=== PATIENT | female | born 1965 | race African-American/Black ===

== ENCOUNTER 2017-03-19 09:40 | Emergency (ER) | payer OTHER ==
[~2017-03-19] VITALS: Ht 170.2 cm; Wt 97.5 kg
[~2017-03-19 09:40] MED LIST: LEVO25TA9 PO; LOVA20TA2 PO
[2017-03-19] MEDS ORDERED: LISINOPRIL (09:53)
--- NOTE | 2017-03-19 11:03 | NUR ---
Note esa in EDM - 03/19/17 at 1104 by JORDYN Patient discharged to home in stable conditon. Written and verbal after care instructions given. Patient verbalizes understanding of instructions.pt walks in steady gait, accompaniedd by . pt tolerated vanco well. no reaction.
--- NOTE | 2017-03-19 11:04 | NUR ---
Patient discharged to home in stable conditon. Written and verbal after care instructions given. Patient verbalizes understanding of instructions.pt walks in steady gait.
== END 2017-03-19 11:05 | disposition home or self-care (01) ==
LOC: ER 09:40
DX: M25.512 Pain in left shoulder (principal); I10 Essential (primary) hypertension; E03.9 Hypothyroidism, unspecified; Z90.710 Acquired absence of both cervix and uterus
CPT/HCPCS: 72040; 73030; 99284; A4663

== ENCOUNTER 2017-06-14 12:22 | Emergency (ER) | payer OTHER ==
[~2017-06-14] VITALS: Ht 170.2 cm; Wt 99.8 kg
[~2017-06-14 12:22] MED LIST changes: +LISINOPRIL
[2017-06-14] MEDS ORDERED: HYDROCHLOROT 25 MG PO (12:28)
[2017-06-14] MEDS ORDERED: PROMETHAZINE HCL 25 MG/1 ML VIAL IM ONE ×2 (12:45→13:45)
[2017-06-14] MEDS ORDERED: HYDROMORPHONE 1 MG/1 ML DISP.SYRIN IM ONE ×2 (12:45→13:45)
[2017-06-14] MEDS ORDERED: HYDROMORPHONE 2 MG/1 ML DISP.SYRIN ONE ×2 (12:53→13:55)
[2017-06-14] MEDS ORDERED: PROMETHAZINE HCL 25 MG/1 ML VIAL ONE ×2 (12:53→13:56)
--- NOTE | 2017-06-14 13:48 | NUR ---
PT WAS EVALUATED BY DR WOODALL. PT WAS D/C TO HOME. D/C INSTRUCTIONS GIVEN TO THE PT.
[2017-06-14 13:49] VITALS: BP 132/68
== END 2017-06-14 13:50 | disposition home or self-care (01) ==
LOC: ER 12:22
DX: G43.909 Migraine, unspecified, not intractable, without status migrainosus (principal); H53.149 Visual discomfort, unspecified; I10 Essential (primary) hypertension; E03.9 Hypothyroidism, unspecified
CPT/HCPCS: 70450; 96372 ×4; 99284; A4663; J1170 ×2; J2550 ×2

== ENCOUNTER 2017-06-29 11:51 | Emergency (ER) | payer OTHER ==
[~2017-06-29] VITALS: Ht 170.2 cm; Wt 99.8 kg
[~2017-06-29 11:51] MED LIST changes: +HYDROCHLOROT 25 MG PO; -LISINOPRIL; -LOVA20TA2 PO
[2017-06-29 14:04] LABS: BASOPHILS # (AUTO) 0.1 K/uL (0.0-8.0); BASOPHILS % (AUTO) 1.1 % (0.0-2.0); EOSINOPHILS # (AUTO) 0.1 K/uL (0.0-0.7); EOSINOPHILS % (AUTO) 1.7 % (0.0-7.0); HEMATOCRIT 45.2 % (37-47); HEMOGLOBIN 14.3 G/DL (12.0-16.0); LYMPHOCYTES # (AUTO) 2.5 K/UL (0.8-4.8); LYMPHOCYTES % (AUTO) 43.2 % (20.5-51.5); MEAN CORPUSCULAR HEMOGLOBIN 26.5 UUG (27.0-31.0); MEAN CORPUSCULAR HGB CONC 32 g/dL (32.0-37.0); MEAN CORPUSCULAR VOLUME 83.9 FL (81.0-99.0); MONOCYTES # (AUTO) 0.7 K/UL (0.1-1.30); MONOCYTES % (AUTO) 11.4 % (0.0-11.0); NEUTROPHILS # (AUTO) 2.6 K/UL (1.8-8.9); NEUTROPHILS % (AUTO) 42.6 % (38.5-71.5); PLATELET COUNT (AUTO) 227 K/UL (150-450); RED BLOOD CELL COUNT(AUTO) 5.39 MIL/UL (4.2-5.4)
[2017-06-29 14:06] LABS: CREATININE 0.9 mg/dL (0.6-1.3); POTASSIUM 3.9 mmol/L (3.5-5.1)
[2017-06-29] MEDS ORDERED: METOCLOPRAMIDE HCL 10 MG/2 ML VIAL IM ONE (14:30)
[2017-06-29] MEDS ORDERED: METOCLOPRAMIDE HCL 10 MG/2 ML VIAL ONE (14:45)
--- NOTE | 2017-06-29 15:11 | NUR ---
ALL ORDERS COMPLETED, PT RESTING WITH DAUGHTER AT THE BEDSIDE.
--- NOTE | 2017-06-29 16:21 | NUR ---
MSE COMPLETED, PT D/C'D HOME, ACI RX X1 GIVEN. PT GOT DRESSED AND AMBULATED W/O DIFF/TOOK ALL BELONGINGS.
[2017-06-29 16:23] VITALS: BP 119/95
== END 2017-06-29 16:24 | disposition home or self-care (01) ==
LOC: ER 11:51
DX: G43.909 Migraine, unspecified, not intractable, without status migrainosus (principal); I10 Essential (primary) hypertension; E03.9 Hypothyroidism, unspecified
CPT/HCPCS: 36415; 85025; A4663; J2765

== ENCOUNTER 2017-08-19 10:37 | Emergency (ER) | payer OTHER ==
[~2017-08-19] VITALS: Ht 170.2 cm; Wt 90.7 kg
--- NOTE | 2017-08-19 10:43 | NUR ---
PT IS IN ROOM #2A. DR YBARRA EVALUATED THE PT.
--- NOTE | 2017-08-19 11:00 | NUR ---
PT REFUSED TO GIVE URIN SAMPLE. DR YBARRA NOTIFIED.
[2017-08-19 11:11] LABS: BASOPHILS % (AUTO) 0.6 % (0.0-2.0); EOSINOPHILS # (AUTO) 0.1 K/uL (0.0-0.7); EOSINOPHILS % (AUTO) 1.8 % (0.0-7.0); HEMATOCRIT 37.8 % (31.2-41.9); HEMOGLOBIN 12.4 g/dL (10.9-14.3); LYMPHOCYTES # (AUTO) 3.1 K/uL (20.0-40.0); LYMPHOCYTES % (AUTO) 48.3 % (20.5-51.5); MEAN CORPUSCULAR HGB CONC 33 g/dL (32.3-35.6); MEAN CORPUSCULAR VOLUME 82.8 fL (75.5-95.3); MONOCYTES # (AUTO) 0.4 K/uL (2.0-10.0); MONOCYTES % (AUTO) 6.2 % (0.0-11.0); NEUTROPHILS # (AUTO) 2.7 K/uL (1.8-8.9); NEUTROPHILS % (AUTO) 43.1 % (38.5-71.5); PLATELET COUNT (AUTO) 216 K/uL (179-408); RED BLOOD CELL COUNT(AUTO) 4.57 MIL/uL (3.63-4.92); WHITE BLOOD COUNT (AUTO) 6.4 K/uL (3.8-11.8)
[2017-08-19 11:16] LABS: CREATININE 0.8 mg/dL (0.6-1.3); POTASSIUM 3.6 mmol/L (3.5-5.1)
[2017-08-19 11:22] LABS: BILIRUBIN,DIRECT 0.1 mg/dL (0.0-0.2); BILIRUBIN,TOTAL 0.4 mg/dL (0.2-1.0); TOTAL PROTEIN, SERUM 7.6 g/dL (6.4-8.2)
--- NOTE | 2017-08-19 12:20 | NUR ---
PT WAS D/C TO HOME. D/C INSTRUCTIONS GIVEN TO THE PT.
[2017-08-19 12:21] VITALS: BP 139/78
== END 2017-08-19 12:23 | disposition home or self-care (01) ==
LOC: ER 10:39
DX: Q43.8 Other specified congenital malformations of intestine (principal); K63.89 Other specified diseases of intestine; I10 Essential (primary) hypertension; E03.9 Hypothyroidism, unspecified; G43.909 Migraine, unspecified, not intractable, without status migrainosus
CPT/HCPCS: 36415; 74176; 80048; 80076; 83690; 85025; 99285; A4663

== ENCOUNTER 2017-11-24 08:45 | Emergency (ER) | payer OTHER ==
[~2017-11-24] VITALS: Ht 170.2 cm; Wt 90.7 kg
--- NOTE | 2017-11-24 09:01 | NUR ---
DR GARCIA AT BEDSIDE FOR EVAL.
[2017-11-24] MEDS ORDERED: diphenhydrAMINE 25 MG CAP PO ONE ×2 (09:15→09:31)
[2017-11-24] MEDS ORDERED: predniSONE 20 MG TABLET PO ONE (09:15)
--- NOTE | 2017-11-24 09:22 | NUR ---
Patient discharged to home in stable conditon. Written and verbal after care instructions given. Patient verbalizes understanding of instructions.pt walks in steady gait with . no sign odf distress.
[2017-11-24] MEDS ORDERED: predniSONE 20 MG TABLET ONE (09:36)
== END 2017-11-24 09:25 | disposition home or self-care (01) ==
LOC: ER 08:45
DX: R21 Rash and other nonspecific skin eruption (principal); E03.9 Hypothyroidism, unspecified; I10 Essential (primary) hypertension; G43.909 Migraine, unspecified, not intractable, without status migrainosus
CPT/HCPCS: A4663; J7512; Q0163

== ENCOUNTER 2018-01-23 16:49 | Emergency (ER) | payer OTHER ==
[~2018-01-23] VITALS: Ht 170.2 cm; Wt 106.1 kg
[2018-01-23] MEDS ORDERED: [UNRECOGNIZED DRUG - OTHER] (17:05)
[2018-01-23] MEDS ORDERED: [UNRECOGNIZED DRUG - OTHER] (17:05)
[2018-01-23] MEDS ORDERED: BACITRACIN (17:05)
[2018-01-23] MEDS ORDERED: TOPIRAMATE 50 MG (17:05)
--- NOTE | 2018-01-23 17:21 | NUR ---
PT WAS EVALUATED BY DR WOODALL. PT WAS D/C TO HOME . D/C INSTRUCTIONS GIVEN TO THE PT.
[2018-01-23 17:22] VITALS: BP 136/84
== END 2018-01-23 17:22 | disposition home or self-care (01) ==
LOC: ER 16:53
DX: L20.9 Atopic dermatitis, unspecified (principal); I10 Essential (primary) hypertension; E03.9 Hypothyroidism, unspecified; Z90.710 Acquired absence of both cervix and uterus; Z79.2 Long term (current) use of antibiotics; Z79.899 Other long term (current) drug therapy
CPT/HCPCS: A4663

== ENCOUNTER 2018-01-30 09:11 | Inpatient (IN) | payer OTHER ==
[~2018-01-30] VITALS: Ht 170.2 cm; Wt 110.2 kg
[~2018-01-30 09:11] MED LIST changes: +BACITRACIN; +TOPIRAMATE 50 MG; +[UNRECOGNIZED DRUG - OTHER]; +[UNRECOGNIZED DRUG - OTHER]
[2018-01-30] MEDS ORDERED: LOVA20TA2 PO (09:20)
--- NOTE | 2018-01-30 09:25 | NUR ---
Dr. Barksdale at bedside for MSE.
[2018-01-30] MEDS ORDERED: PIPERACILLIN/TAZOBACTAM/D5W 3.375 G in PREMIXED 1 EACH IV SCH (09:35)
[2018-01-30] MEDS ORDERED: HYDROCODONE/APAP 5-325MG TABLET PO ONE (09:38)
[2018-01-30] MEDS ORDERED: KETOROLAC TROMETHAMINE 60 MG INJ IM ONE (09:45)
[2018-01-30] MEDS ORDERED: IV NORMAL SALINE 1000 ML BAG IV ONE (09:45)
[2018-01-30 10:12] LABS: BASOPHILS # (AUTO) 0.1 K/uL (0.0-8.0); BASOPHILS % (AUTO) 1.1 % (0.0-2.0); EOSINOPHILS # (AUTO) 0.2 K/uL (0.0-0.7); EOSINOPHILS % (AUTO) 4.4 % (0.0-7.0); HEMATOCRIT 37.8 % (31.2-41.9); HEMOGLOBIN 12.7 g/dL (10.9-14.3); LYMPHOCYTES # (AUTO) 2.8 K/uL (20.0-40.0); LYMPHOCYTES % (AUTO) 51.7 % (20.5-51.5); MEAN CORPUSCULAR HEMOGLOBIN 27.9 uug (24.7-32.8); MEAN CORPUSCULAR HGB CONC 34 g/dL (32.3-35.6); MEAN CORPUSCULAR VOLUME 82.7 fL (75.5-95.3); MONOCYTES # (AUTO) 0.3 K/uL (2.0-10.0); MONOCYTES % (AUTO) 6.5 % (0.0-11.0); NEUTROPHILS # (AUTO) 1.9 K/uL (1.8-8.9); NEUTROPHILS % (AUTO) 36.3 % (38.5-71.5); PLATELET COUNT (AUTO) 204 K/uL (179-408); RED BLOOD CELL COUNT(AUTO) 4.57 MIL/uL (3.63-4.92); WHITE BLOOD COUNT (AUTO) 5.3 K/uL (3.8-11.8)
[2018-01-30 10:17] LABS: CREATININE 0.9 mg/dL (0.6-1.3); POTASSIUM 3.7 mmol/L (3.5-5.1)
[2018-01-30] MEDS ORDERED: HYDROCODONE/APAP 5-325MG TABLET ONE (10:18)
[2018-01-30] MEDS ORDERED: PIPERACILLIN/TAZOBACTAM/D5W 50 ML IV ONE (10:18)
[2018-01-30] MEDS ORDERED: KETOROLAC TROMETHAMINE 30 MG INJ ONE (10:19)
[2018-01-30 10:23] LABS: BILIRUBIN,TOTAL 0.3 mg/dL (0.2-1.0); TOTAL PROTEIN, SERUM 7.7 g/dL (6.4-8.2)
[2018-01-30] MEDS ORDERED: KETOROLAC TROMETHAMINE 30 MG INJ IVP ONE (10:45)
--- NOTE | 2018-01-30 11:02 | NUR ---
PATIENT IS A DIFFICULT IV START. MULTIPLE ATTEMPTS BY MULTIPLE PEOPLE TO START IV ON LEFT ARM WERE UNSUCCESSFUL. WE ASKED DR MARC IF ITS OK TO PLACE IV ON RIGHT ARM AND HE SAID YES. PATIENT ALSO AGREED.
--- NOTE | 2018-01-30 11:13 | NUR ---
REPORT GIVEN TO PRICE. PATIENT AWARE OF PENDING ADMISSION.
[2018-01-30 11:15] LABS: *BILIRUBIN,URIN NEGATIVE (NEGATIVE); *BLOOD, URINE NEGATIVE (NEGATIVE); *CLARITY,URINE SLIGHTLY CLOUDY (CLEAR); *COLOR,URINE YELLOW (YELLOW); *KETONES,URINE NEGATIVE (NEGATIVE); *PROTEIN,URINE NEGATIVE (NEGATIVE); *UROBILINOGEN,URINE 0.2 E.U./dl (NORMAL); LEUKOCYTE ESTERASE ,URINE NEGATIVE (NEGATIVE); NITRITE, URINE NEGATIVE (NEGATIVE); PH,URINE 5.5 (5.0-8.0); UGLUCOSE NEGATIVE (NEGATIVE)
[2018-01-30] MEDS ORDERED: ACETAMINOPHEN 325 MG TABLET PO PRN (11:15)
[2018-01-30] MEDS ORDERED: HYDROCODONE/APAP 5-325MG TABLET PO PRN (11:15)
[2018-01-30] MEDS ORDERED: ONDANSETRON 4 MG/2 ML VIAL IV PRN (11:15)
[2018-01-30] MEDS ORDERED: MORPHINE SULFATE 2 MG/1 ML DISP.SYRIN IV PRN (11:15)
--- NOTE | 2018-01-30 11:20 | NUR ---
Pt transferred to Med/Surg unit.
--- NOTE | 2018-01-30 11:30 | NUR ---
Received pt from ER. No immediate s/s of sever pain, no immediate SOB, distress or discomfort. Alert and oriented times4, ambulatory,skin intact. ENERGY EFFICIENCY SPECIALIST aware of pt's arrival to the med-surg floor and orders in place.
[2018-01-30 11:31] LABS: BACTERIA,URINE MODERATE /HPF (NONE SEEN); RBC,URINE 0-3 /HPF (0-3); SQUAMOUS EPITHELIAL CELL,UR MANY /HPF (NONE SEEN)
[2018-01-30 11:36] VITALS: BP 141/84
--- NOTE | 2018-01-30 11:38 | NUR ---
Clinical Pharmacy Note: Vancomycin Pharmacy to Dose Subjective: To start vancomycin in this 52 y/o female for indication of cellulitis. Also started on zosyn Objective: weight 60 kg height 170 cm BUN 9 Scr 0.9 wbc 5.3 temp 97.6 Assessment/Plan Will start regimen of 1gm q16h for estimated trough of 15.5, first dose today at 1230. Will order trough before 4th scheduled dose (not ordered yet). Will monitor renal function and change to dose per level if were to become unstable. Will follow
[2018-01-30] MEDS: IV NS 1000 ML 1,000 ML IV PRN (11:59)
[2018-01-30] MEDS: VANCOMYCIN IV 1 G in PREMIXED 0 EACH IV SCH (13:05)
[2018-01-30 16:01] VITALS: BP 146/81
--- NOTE | 2018-01-30 16:20 | NUR ---
Noted previous IV line leaking. IV was removed from right AC and a new IV line started on the left forearm, 22g. Pt tolerated procedure well, noted blood return. no s/s of infiltration
[2018-01-30] MEDS ORDERED: PIPERACILLIN/TAZOBACTAM/D5W 50 ML IV SCH (16:30)
--- NOTE | 2018-01-30 19:07 | NUR ---
End of shift notes: Pt has been compliant with nursing care and medications. ATB started Vanco and Zosyn for right elbow cellulitis. No immediate s/s of SOB, pain, distress or discomfort. is bed bedside, pt is laying in bed watching television. Bed at lowest position for safety and call light within reach for assistance. One dose morphine given for pain in the early afternoon.
--- NOTE | 2018-01-30 20:00 | NUR ---
RECEIVED PATIENT AWAKE IN BED, WATCHING TV. PATIENT IS A/O X4. DENIES ANY PAIN OR DISCOMFORT AT THIS TIME. IVF INFUSING WELL TO LEFT FA #22 GAUGE. VSS. NO RESP. DISTRESS NOTED. CALL LIGHT IN REACH. ALL NEEDS ATTENDED, WILL CONTINUE TO MONITOR AND ASSESS.
[2018-01-30 20:20] VITALS: BP 142/81
[2018-01-30] MEDS ORDERED: ATORVASTATIN 10 MG TABLET PO SCH (21:00)
--- NOTE | 2018-01-30 21:05 | NUR ---
PATIENT AWAKE IN BED, C/O FEELING NAUSEOUS. GIVEN ZOFRAN 4MG IV PER RN. WILL CONTINUE TO MONITOR AND ASSESS.
[2018-01-30] MEDS: CEFTRIAXONE 1 G in IV DEXTROSE 5% 50 ML IV SCH (21:21)
--- NOTE | 2018-01-30 22:01 | NUR ---
PATIENT AWAKE IN BED, VERBALIZED THAT NAUSEA HAS BEEN RELIEVED. WILL CONTINUE TO MONITOR AND ASSESS.
[2018-01-31] MEDS: VANCOMYCIN IV 1 G in PREMIXED 0 EACH IV SCH ×2 (04:40→20:09)
[2018-01-31 05:07] VITALS: BP 140/81
[2018-01-31] MEDS: LEVOTHYROXINE SODIUM 25 MCG TABLET PO SCH (06:17)
[2018-01-31] MEDS: PANTOPRAZOLE SODIUM 40 MG TABLET.DR PO SCH (06:17)
[2018-01-31] MEDS: IV NS 1000 ML 1,000 ML IV PRN (06:17)
--- NOTE | 2018-01-31 06:33 | NUR ---
PATIENT AWAKE IN BED, DENIES ANY PAIN OR DISCOMFORT. NO RESP. DISTRESS NOTED. IVF INFUSING WELL TO LEFT FA. CALL LIGHT IN REACH. ALL NEEDS ATTENDED. WILL CONTINUE TO MONITOR AND ASSESS.
--- NOTE | 2018-01-31 07:00 | NUR ---
Pt is awake, alert and oriented times 4. Pt is laying in a supine position with the HOB at a high semi ledesma. No immediate SOB, pain, distress or discomfort. Noted swelling of the right elbow diminished. Pt states she feels minimal pain but tolerable, pt refused pain medications as of right now.
[2018-01-31 07:46] LABS: BASOPHILS % (AUTO) 0.7 % (0.0-2.0); EOSINOPHILS # (AUTO) 0.2 K/uL (0.0-0.7); EOSINOPHILS % (AUTO) 4.2 % (0.0-7.0); HEMATOCRIT 36.3 % (31.2-41.9); LYMPHOCYTES # (AUTO) 2.3 K/uL (20.0-40.0); LYMPHOCYTES % (AUTO) 45.6 % (20.5-51.5); MEAN CORPUSCULAR HEMOGLOBIN 27.6 uug (24.7-32.8); MEAN CORPUSCULAR HGB CONC 33 g/dL (32.3-35.6); MEAN CORPUSCULAR VOLUME 83.1 fL (75.5-95.3); MONOCYTES # (AUTO) 0.4 K/uL (2.0-10.0); MONOCYTES % (AUTO) 7.6 % (0.0-11.0); NEUTROPHILS # (AUTO) 2.1 K/uL (1.8-8.9); NEUTROPHILS % (AUTO) 41.9 % (38.5-71.5); PLATELET COUNT (AUTO) 202 K/uL (179-408); RED BLOOD CELL COUNT(AUTO) 4.37 MIL/uL (3.63-4.92); WHITE BLOOD COUNT (AUTO) 5.1 K/uL (3.8-11.8)
[2018-01-31] MEDS: HYDROCHLOROTHIAZIDE 25 MG TABLET PO SCH (08:02)
[2018-01-31 08:06] LABS: BILIRUBIN,TOTAL 0.2 mg/dL (0.2-1.0); CREATININE 0.9 mg/dL (0.6-1.3); MAGNESIUM 1.9 mg/dL (1.8-2.4); PHOSPHOROUS 2.9 mg/dL (2.5-4.9); POTASSIUM 3.9 mmol/L (3.5-5.1); TOTAL PROTEIN, SERUM 7.1 g/dL (6.4-8.2)
[2018-01-31 08:08] LABS: THYROID STIMULATING HORMONE 2.59 mIU/mL (0.358-3.740)
[2018-01-31] MEDS ORDERED: Medication Not On Formulary EA (Lovastatin 1 TAB) PO SCH (09:00)
[2018-01-31] MEDS ORDERED: HYDROCHLOROT 25 MG PO SCH (09:00)
[2018-01-31] MEDS: OMEGA-3 FATTY ACIDS/FISH OIL CAPSULE PO SCH ×2 (10:49→22:33)
[2018-01-31 11:11] VITALS: BP 129/75
[2018-01-31] MEDS ORDERED: MAGNESIUM HYDROXIDE 30 ML LIQUID UDC PO PRN (11:45)
[2018-01-31] MEDS: DOCUSATE SODIUM 100 MG CAPSULE PO SCH ×2 (12:47→21:00)
--- NOTE | 2018-01-31 12:49 | NUR ---
Pt had stated previously to the WHEAT GROWER and myself in the room that she has not had a BM since . Warm prune juice given and Colace as ordered BID and MOM PRN as ordered by WHEAT GROWER. Pt compliant with Colace and prune juice. Pt was advice to walk around the unit
[2018-01-31 13:46] LABS: *BILIRUBIN,URIN NEGATIVE (NEGATIVE); *BLOOD, URINE NEGATIVE (NEGATIVE); *CLARITY,URINE CLEAR (CLEAR); *COLOR,URINE YELLOW (YELLOW); *KETONES,URINE NEGATIVE (NEGATIVE); *PROTEIN,URINE NEGATIVE (NEGATIVE); *UROBILINOGEN,URINE 0.2 E.U./dl (NORMAL); LEUKOCYTE ESTERASE ,URINE NEGATIVE (NEGATIVE); NITRITE, URINE NEGATIVE (NEGATIVE); PH,URINE 5.5 (5.0-8.0); UGLUCOSE NEGATIVE (NEGATIVE)
[2018-01-31 14:34] LABS: BACTERIA,URINE NONE SEEN /HPF (NONE SEEN); RBC,URINE 0-3 /HPF (0-3); SQUAMOUS EPITHELIAL CELL,UR FEW /HPF (NONE SEEN); WBC,URINE 0-3 /HPF (0-3)
--- NOTE | 2018-01-31 14:47 | NUR ---
Clinical Pharmacy Note: Vancomycin Pharmacy to Dose Subjective: To continue vancomycin in this 52 y/o female for indication of cellulitis. Also on Rocephin Objective: weight 60 kg height 170 cm BUN 10 Scr 0.9 wbc 5.1 temp 98.6 Assessment/Plan Will continue regimen of 1gm q16h for estimated trough of 15.5, third dose due today at 2030. Will order trough before 4th scheduled dose (ordered for tomorrow at 1200). Will monitor renal function and change to dose per level if were to become unstable. Will follow
--- NOTE | 2018-01-31 15:10 | NUR ---
Pt states she feels itchy all over. Informed DRIVE IN WAITER/WAITRESS and Donald ordered IV. Gave pt some lotion as temporary relief
[2018-01-31 15:21] VITALS: BP 113/77
[2018-01-31] MEDS: diphenhydrAMINE 50 MG/1 ML VIAL IV PRN (15:58)
[2018-01-31] MEDS ORDERED: MORPHINE SULFATE 4 MG/1 ML DISP.SYRIN IV PRN (16:45)
--- NOTE | 2018-01-31 18:40 | NUR ---
End of shift notes: pt has been compliant with nursing care and medications throughout the day. Pleasant individual, no apparent s/s of pain, distress, discomfort or SOB at this time. Pt is noted to be napping but easily arousable to name. Pt requested a cake and a sandwich as an evening snack and both were provided for her. Noted pt is able to move her right upper extremity and her elbow is notably less swollen than yesterday. Pt also stated she feels much better. Colace and Benadryl were new orders
[2018-01-31 20:00] VITALS: BP 115/57
--- NOTE | 2018-01-31 20:00 | NUR ---
RECEIVED PATIENT AWAKE IN BED. A/O X4. DENIES ANY PAIN OR DISCOMFORT. NO RESP. DISTRESS NOTED. VS WNL. IV HEPLOCK NOTED TO LEFT FA #22 GAUGE. ALL NEEDS ATTENDED, WILL CONTINUE TO MONITOR AND ASSESS.
[2018-01-31] MEDS: LACTOBACILLUS RHAMNOSUS GG 1 EACH CAPSULE PO SCH (20:19)
--- NOTE | 2018-01-31 20:45 | NUR ---
PATIENT AWAKE IN BED. IV HEPLOCK NOTED TO LEFT FA, REDNESS NOTED AND PATIENT C/O "BURNING FEELING." REMOVED AND RESTARTED TO RIGHT FA #22 GAUGE. ALL NEEDS ATTENDED. WILL CONTINUE TO MONITOR AND ASSESS.
[2018-01-31] MEDS ORDERED: ATORVASTATIN 20 MG TABLET PO SCH (21:00)
[2018-01-31] MEDS: CEFTRIAXONE 1 G in IV DEXTROSE 5% 50 ML IV SCH (22:28)
[2018-02-01] MEDS: diphenhydrAMINE 50 MG/1 ML VIAL IV PRN (01:48)
[2018-02-01 05:11] VITALS: BP 115/66
[2018-02-01] MEDS: PANTOPRAZOLE SODIUM 40 MG TABLET.DR PO SCH (06:22)
[2018-02-01] MEDS: LEVOTHYROXINE SODIUM 25 MCG TABLET PO SCH (06:22)
--- NOTE | 2018-02-01 06:41 | NUR ---
PATIENT AWAKE IN BED, DENIES ANY PAIN OR DISCOMFORT. NO RESP. DISTRESS NOTED. SLEPT WELL. CALL LIGHT IN REACH. ALL NEEDS ATTENDED. WILL CONTINUE TO MONITOR.
[2018-02-01 07:05] LABS: BASOPHILS # (AUTO) 0.1 K/uL (0.0-8.0); EOSINOPHILS # (AUTO) 0.2 K/uL (0.0-0.7); EOSINOPHILS % (AUTO) 4.3 % (0.0-7.0); HEMATOCRIT 38.3 % (31.2-41.9); HEMOGLOBIN 12.5 g/dL (10.9-14.3); LYMPHOCYTES # (AUTO) 2.5 K/uL (20.0-40.0); LYMPHOCYTES % (AUTO) 43.7 % (20.5-51.5); MEAN CORPUSCULAR HEMOGLOBIN 27.1 uug (24.7-32.8); MEAN CORPUSCULAR HGB CONC 33 g/dL (32.3-35.6); MEAN CORPUSCULAR VOLUME 83.5 fL (75.5-95.3); MONOCYTES # (AUTO) 0.4 K/uL (2.0-10.0); MONOCYTES % (AUTO) 7.6 % (0.0-11.0); NEUTROPHILS # (AUTO) 2.5 K/uL (1.8-8.9); NEUTROPHILS % (AUTO) 43.4 % (38.5-71.5); PLATELET COUNT (AUTO) 191 K/uL (179-408); RED BLOOD CELL COUNT(AUTO) 4.59 MIL/uL (3.63-4.92); WHITE BLOOD COUNT (AUTO) 5.6 K/uL (3.8-11.8)
[2018-02-01 07:07] LABS: BILIRUBIN,TOTAL 0.2 mg/dL (0.2-1.0); CREATININE 0.9 mg/dL (0.6-1.3); MAGNESIUM 1.9 mg/dL (1.8-2.4); PHOSPHOROUS 4.4 mg/dL (2.5-4.9); POTASSIUM 3.7 mmol/L (3.5-5.1); TOTAL PROTEIN, SERUM 7.6 g/dL (6.4-8.2)
--- NOTE | 2018-02-01 08:00 | NUR ---
Pt is in no acute distress. Pt alert and oriented x 4. Right upper arm swelling of cellulitis was marked, tender to touch and not warm. Pt states that the swelling on the right elbow area has subsided since pt got abx. Call light is within reach. Pt ambulatory and able to walk.
[2018-02-01] MEDS: DOCUSATE SODIUM 100 MG CAPSULE PO SCH (09:30)
[2018-02-01] MEDS: LACTOBACILLUS RHAMNOSUS GG 1 EACH CAPSULE PO SCH (09:30)
[2018-02-01] MEDS: OMEGA-3 FATTY ACIDS/FISH OIL CAPSULE PO SCH (09:30)
[2018-02-01] MEDS: HYDROCHLOROTHIAZIDE 25 MG TABLET PO SCH (09:35)
[2018-02-01 11:08] VITALS: BP 121/70
[2018-02-01] MEDS ORDERED: SULFAMETH/TRIMETH 800/160 MG TABLET PO SCH (12:45)
[2018-02-01] MEDS ORDERED: ATOR20TA PO (12:46)
[2018-02-01] MEDS ORDERED: OMEG1CAP PO (12:46)
[2018-02-01] MEDS ORDERED: SULF1TAB3 PO (12:46)
[2018-02-01] MEDS ORDERED: ACET325T53 PO (12:46)
[2018-02-01] MEDS ORDERED: LACT1CAP57 PO (12:46)
--- NOTE | 2018-02-01 14:30 | NUR ---
Discharge instructions given to patient. Prescription given to patient. Pt verbalized understanding. Instructed pt to f/u with PMD within 1 week. IV d/c. Pt's right upper arm cellulitis has decreased compared when pt was admitted. Pt refused to have pix taken. Pt wanted to go home YURI.
== END 2018-02-01 14:25 | disposition home or self-care (01) | DRG 383 ==
LOC: ER 09:13 → MED 11:00
PROVIDERS: ADMIT Internal Medicine; ATTEND Internal Medicine
DX: L03.113 Cellulitis of right upper limb (principal); I27.20 Pulmonary hypertension, unspecified; I11.9 Hypertensive heart disease without heart failure; K76.0 Fatty (change of) liver, not elsewhere classified; E03.9 Hypothyroidism, unspecified; E78.5 Hyperlipidemia, unspecified; E66.8 Other obesity; M17.0 Bilateral primary osteoarthritis of knee; S50.361A Insect bite (nonvenomous) of right elbow, initial encounter; W57.XXXA Bitten or stung by nonvenomous insect and other nonvenomous arthropods, initial encounter; Y92.89 Other specified places as the place of occurrence of the external cause; Z68.38 Body mass index [BMI] 38.0-38.9, adult; Q63.2 Ectopic kidney; Z83.3 Family history of diabetes mellitus; Z82.49 Family history of ischemic heart disease and other diseases of the circulatory system; Z90.710 Acquired absence of both cervix and uterus; Z79.899 Other long term (current) drug therapy; K22.4 Dyskinesia of esophagus; R00.1 Bradycardia, unspecified; E88.09 Other disorders of plasma-protein metabolism, not elsewhere classified
CPT/HCPCS: 36415; 71045; 73020; 73060; 73070; 73200; 83605; 83735; 84100; 84443; 85025; 85610; 87040; 87086; A4663; J0696; J1200; J1885; J2270; J2405; J2543; J3370; J7030; J7060

== ENCOUNTER 2018-04-28 13:15 | Emergency (ER) | payer OTHER ==
[~2018-04-28] VITALS: Ht 170.2 cm; Wt 77.1 kg
[~2018-04-28 13:15] MED LIST changes: +ACET325T53 PO; +ATOR20TA PO; -BACITRACIN; +LACT1CAP57 PO; +OMEG1CAP PO; +SULF1TAB3 PO; -TOPIRAMATE 50 MG; -[UNRECOGNIZED DRUG - OTHER]; -[UNRECOGNIZED DRUG - OTHER]
--- NOTE | 2018-04-28 13:28 | NUR ---
Dr Chand at the bedside for MSE.
[2018-04-28 14:03] LABS: *BILIRUBIN,URIN NEGATIVE (NEGATIVE); *BLOOD, URINE NEGATIVE (NEGATIVE); *COLOR,URINE YELLOW (YELLOW); *KETONES,URINE NEGATIVE (NEGATIVE); *PROTEIN,URINE NEGATIVE (NEGATIVE); *UROBILINOGEN,URINE 0.2 E.U./dl (NORMAL); LEUKOCYTE ESTERASE ,URINE NEGATIVE (NEGATIVE); NITRITE, URINE NEGATIVE (NEGATIVE); PH,URINE 5.5 (5.0-8.0); UGLUCOSE NEGATIVE (NEGATIVE)
[2018-04-28 14:05] LABS: BASOPHILS # (AUTO) 0.1 K/uL (0.0-8.0); BASOPHILS % (AUTO) 2.1 % (0.0-2.0); EOSINOPHILS # (AUTO) 0.2 K/uL (0.0-0.7); EOSINOPHILS % (AUTO) 2.2 % (0.0-7.0); HEMATOCRIT 41.9 % (31.2-41.9); HEMOGLOBIN 13.8 g/dL (10.9-14.3); LYMPHOCYTES # (AUTO) 3.4 K/uL (20.0-40.0); LYMPHOCYTES % (AUTO) 46.6 % (20.5-51.5); MEAN CORPUSCULAR HGB CONC 33 g/dL (32.3-35.6); MEAN CORPUSCULAR VOLUME 82.3 fL (75.5-95.3); MONOCYTES # (AUTO) 0.6 K/uL (2.0-10.0); NEUTROPHILS % (AUTO) 41.1 % (38.5-71.5); PLATELET COUNT (AUTO) 251 K/uL (179-408); WHITE BLOOD COUNT (AUTO) 7.2 K/uL (3.8-11.8)
[2018-04-28 14:09] LABS: *CLARITY,URINE HAZY (CLEAR)
[2018-04-28 14:12] LABS: BACTERIA,URINE FEW /HPF (NONE SEEN); CREATININE 0.9 mg/dL (0.6-1.3); POTASSIUM 3.2 mmol/L (3.5-5.1); RBC,URINE 0-3 /HPF (0-3); SQUAMOUS EPITHELIAL CELL,UR MODERATE /HPF (NONE SEEN); WBC,URINE 0-3 /HPF (0-3)
[2018-04-28 14:13] LABS: MUCUS,URINE MODERATE /LPF (0-FEW)
[2018-04-28 14:18] LABS: BILIRUBIN,DIRECT 0.1 mg/dL (0.0-0.2); BILIRUBIN,TOTAL 0.3 mg/dL (0.2-1.0); TOTAL PROTEIN, SERUM 8.5 g/dL (6.4-8.2)
[2018-04-28 14:51] VITALS: BP 119/98
--- NOTE | 2018-04-28 14:53 | NUR ---
Patient discharged to home in stable conditon. Written and verbal after care instructions given. Patient verbalizes understanding of instructions.
== END 2018-04-28 14:53 | disposition home or self-care (01) ==
LOC: ER 13:17
DX: R10.13 Epigastric pain (principal); I10 Essential (primary) hypertension; E03.9 Hypothyroidism, unspecified; Z90.710 Acquired absence of both cervix and uterus; Z79.899 Other long term (current) drug therapy; Z79.2 Long term (current) use of antibiotics
CPT/HCPCS: 36415; 83690; 85025; A4663

== ENCOUNTER 2018-05-03 15:18 | Inpatient (IN) | payer OTHER ==
[~2018-05-03] VITALS: Ht 170.2 cm; Wt 112.1 kg
--- NOTE | 2018-05-03 15:43 | NUR ---
PATIENT TAKEN TO ROOM 2A. PATIENT STATES SHE HAS BEEN HAVING ABDOMINAL PAIN WITH NAUSEA AND X1 EPISODE OF VOMITING TODAY.
--- NOTE | 2018-05-03 15:44 | NUR ---
DOCTOR FERNANDO IN ROOM TO SEE PATIENT.
[2018-05-03] MEDS ORDERED: MORPHINE SULFATE 2 MG/1 ML DISP.SYRIN IV ONE (16:00)
[2018-05-03] MEDS ORDERED: IV NORMAL SALINE 1000 ML BAG IV ONE ×3 (16:00→17:15)
[2018-05-03] MEDS ORDERED: LIDOCAINE VISCUS 2% 15 ML UDC MM ONE (16:00)
[2018-05-03] MEDS ORDERED: MAG HYDROX/AL HYDROX/SIMETH 30 ML LIQUID UDC PO ONE (16:00)
[2018-05-03] MEDS ORDERED: ONDANSETRON 4 MG/2 ML VIAL IV ONE ×2 (16:00→17:15)
[2018-05-03] MEDS ORDERED: PANTOPRAZOLE SODIUM 40 MG VIAL IV ONE (16:00)
[2018-05-03] MEDS ORDERED: ONDANSETRON 4 MG/2 ML VIAL ONE ×3 (16:04→19:21)
[2018-05-03] MEDS ORDERED: MAG HYDROX/AL HYDROX/SIMETH 30 ML LIQUID UDC ONE (16:04)
[2018-05-03] MEDS ORDERED: LIDOCAINE VISCUS 2% 15 ML UDC ONE (16:04)
[2018-05-03] MEDS ORDERED: MORPHINE SULFATE 4 MG/1 ML DISP.SYRIN ONE ×3 (16:04→19:21)
[2018-05-03] MEDS ORDERED: PANTOPRAZOLE SODIUM 40 MG VIAL ONE (16:05)
[2018-05-03 16:17] LABS: BASOPHILS # (AUTO) 0.1 K/uL (0.0-8.0); BASOPHILS % (AUTO) 0.3 % (0.0-2.0); EOSINOPHILS # (AUTO) 0.4 K/uL (0.0-0.7); EOSINOPHILS % (AUTO) 2.3 % (0.0-7.0); HEMATOCRIT 41.2 % (31.2-41.9); HEMOGLOBIN 13.5 g/dL (10.9-14.3); LYMPHOCYTES # (AUTO) 0.7 K/uL (20.0-40.0); LYMPHOCYTES % (AUTO) 4.3 % (20.5-51.5); MEAN CORPUSCULAR HEMOGLOBIN 26.6 uug (24.7-32.8); MEAN CORPUSCULAR HGB CONC 33 g/dL (32.3-35.6); MEAN CORPUSCULAR VOLUME 81.1 fL (75.5-95.3); MONOCYTES # (AUTO) 0.5 K/uL (2.0-10.0); MONOCYTES % (AUTO) 3.4 % (0.0-11.0); NEUTROPHILS % (AUTO) 89.7 % (38.5-71.5); PLATELET COUNT (AUTO) 156 K/uL (179-408); RED BLOOD CELL COUNT(AUTO) 5.08 MIL/uL (3.63-4.92); WHITE BLOOD COUNT (AUTO) 15.6 K/uL (3.8-11.8)
--- NOTE | 2018-05-03 16:33 | NUR ---
PATIENT X1 EMESIS GREEN MINIMUM AMOUNT.
[2018-05-03 16:35] LABS: CREATININE 1.2 mg/dL (0.6-1.3); POTASSIUM 3.3 mmol/L (3.5-5.1)
--- NOTE | 2018-05-03 16:36 | NUR ---
PATIENT RESTING AND FEELING BETTER AFTER PAIN AND NAUSEA MEDICATION GIVEN.
[2018-05-03 16:47] LABS: BILIRUBIN,DIRECT 1.6 mg/dL (0.0-0.2); BILIRUBIN,TOTAL 2.6 mg/dL (0.2-1.0); TOTAL PROTEIN, SERUM 7.9 g/dL (6.4-8.2)
[2018-05-03 16:51] LABS: THYROID STIMULATING HORMONE 2.824 mIU/mL (0.358-3.740)
[2018-05-03] MEDS ORDERED: MORPHINE SULFATE 4 MG/1 ML DISP.SYRIN IV ONE ×2 (17:15→19:15)
--- NOTE | 2018-05-03 17:45 | NUR ---
PATIENT COMPLAINS OF ABDOMINAL PAIN MID AND RIGHT UPPER QUADRANTS.
--- NOTE | 2018-05-03 18:36 | NUR ---
PATIENT TAKEN DOWN TO CT SCAN.
--- NOTE | 2018-05-03 19:01 | NUR ---
SBAR GIVEN TO SARAY
--- NOTE | 2018-05-03 19:10 | NUR ---
Pt states still has abdominal pain 6/10, still nauseous, and now feeling some itching started around 30 min ago. MD notified.
[2018-05-03] MEDS ORDERED: ONDANSETRON IV *ER 4 MG/2 ML VIAL IV ONE (19:15)
[2018-05-03] MEDS ORDERED: diphenhydrAMINE 50 MG/1 ML VIAL IV ONE (19:15)
[2018-05-03] MEDS ORDERED: diphenhydrAMINE 50 MG/1 ML VIAL ONE (19:17)
--- NOTE | 2018-05-03 19:42 | NUR ---
Pt states her pain is gone, not nauseous, and the itching has gone down, feeling better.
--- NOTE | 2018-05-03 20:02 | NUR ---
Dr. Hallman on panel call with Dr. John Richardson.
--- NOTE | 2018-05-03 20:21 | NUR ---
Passed report Erica MULLINS medsurg.
[2018-05-03 20:55] VITALS: BP 106/55
--- NOTE | 2018-05-03 21:40 | NUR ---
RECEIVED PT FROM ER VIA GURNEY. PT IS AWAKE, ALERT, AND ORIENTEDX4. PT ADMITTED TO TELEMETRY UNDER THE CARE OF DR. DEVLIN. DX: ABDOMINAL PAIN. BELONGING LIST DONE. ADMISSION PROCESS AND CARE PLAN INITIATED. RETIREMENT ASSESSMENT DONE.SAFETY AND COMFORT PROVIDED. CALL LIGHT WITHIN REACH. WILL CONTINUE TO MONITOR.
[2018-05-03] MEDS ORDERED: ACETAMINOPHEN 650 MG SUPP.RECT RC PRN (22:30)
[2018-05-03] MEDS ORDERED: HYDROMORPHONE 1 MG/1 ML DISP.SYRIN IV PRN (22:30)
[2018-05-03] MEDS ORDERED: ONDANSETRON 4 MG/2 ML VIAL IV PRN (22:30)
[2018-05-03] MEDS: diphenhydrAMINE 50 MG/1 ML VIAL IV PRN (22:57)
[2018-05-03] MEDS ORDERED: POTASSIUM CHLORIDE 10 MEQ/50 ML IV ONE (23:00)
[2018-05-03] MEDS ORDERED: POTASSIUM CHLORIDE 20 MEQ in IV D5/ 0.9% NACL 1,000 ML IV PRN (23:00)
[2018-05-03] MEDS ORDERED: PIGGYBACK IV ONE (23:00)
[2018-05-03] MEDS ORDERED: MORPHINE SULFATE 4 MG/1 ML DISP.SYRIN IV PRN (23:15)
[2018-05-04 03:09] LABS: *BLOOD, URINE NEGATIVE (NEGATIVE); *CLARITY,URINE CLEAR (CLEAR); *COLOR,URINE AMBER (YELLOW); *KETONES,URINE NEGATIVE (NEGATIVE); *PROTEIN,URINE 1+ (NEGATIVE); LEUKOCYTE ESTERASE ,URINE NEGATIVE (NEGATIVE); NITRITE, URINE NEGATIVE (NEGATIVE); PH,URINE 5.5 (5.0-8.0); UGLUCOSE NEGATIVE (NEGATIVE)
[2018-05-04 03:12] LABS: *BILIRUBIN,URIN 1+ (NEGATIVE)
[2018-05-04 03:13] LABS: BACTERIA,URINE FEW /HPF (NONE SEEN); RBC,URINE 0-3 /HPF (0-3); SQUAMOUS EPITHELIAL CELL,UR MANY /HPF (NONE SEEN)
[2018-05-04 04:00] VITALS: BP 106/45
[2018-05-04] MEDS: diphenhydrAMINE 50 MG/1 ML VIAL IV PRN (05:14)
--- NOTE | 2018-05-04 06:42 | NUR ---
PT SLEPT THROUGHOUT THE SHIFT. PT SHOWS NO SIGNS OF DISTRESS. IV INTACT AND PATENT. PRESCRIBED MEDICATION GIVEN AND PT TOLERATED IT WELL. PT STILL HAS ABDOMINAL PAIN. SAFETY AND COMFORT PROVIDED. WILL ENDORSE TO DAYSHIFT NURSE.
[2018-05-04 06:46] LABS: BASOPHILS # (AUTO) 0.1 K/uL (0.0-8.0); BASOPHILS % (AUTO) 0.6 % (0.0-2.0); EOSINOPHILS # (AUTO) 0.6 K/uL (0.0-0.7); EOSINOPHILS % (AUTO) 4.8 % (0.0-7.0); HEMATOCRIT 36.9 % (31.2-41.9); HEMOGLOBIN 12.3 g/dL (10.9-14.3); LYMPHOCYTES # (AUTO) 0.7 K/uL (20.0-40.0); LYMPHOCYTES % (AUTO) 6.2 % (20.5-51.5); MEAN CORPUSCULAR HEMOGLOBIN 27.3 uug (24.7-32.8); MEAN CORPUSCULAR HGB CONC 33 g/dL (32.3-35.6); MEAN CORPUSCULAR VOLUME 82.1 fL (75.5-95.3); MONOCYTES # (AUTO) 0.4 K/uL (2.0-10.0); MONOCYTES % (AUTO) 2.9 % (0.0-11.0); NEUTROPHILS # (AUTO) 10.4 K/uL (1.8-8.9); NEUTROPHILS % (AUTO) 85.5 % (38.5-71.5); RED BLOOD CELL COUNT(AUTO) 4.49 MIL/uL (3.63-4.92); WHITE BLOOD COUNT (AUTO) 12.1 K/uL (3.8-11.8)
[2018-05-04 07:02] LABS: BILIRUBIN,TOTAL 0.8 mg/dL (0.2-1.0); PHOSPHOROUS 1.7 mg/dL (2.5-4.9); POTASSIUM 3.2 mmol/L (3.5-5.1); TOTAL PROTEIN, SERUM 7.1 g/dL (6.4-8.2)
[2018-05-04] MEDS ORDERED: PANTOPRAZOLE SODIUM 40 MG VIAL IV SCH (07:30)
[2018-05-04 07:34] LABS: PLATELET COUNT (AUTO) 134 K/uL (179-408)
[2018-05-04 07:35] LABS: LYMPHOCYTES % (MANUAL) 7 % (20-40); NEUTROPHILS % (MANUAL) 86 % (42-75)
[2018-05-04 07:36] LABS: EOSINOPHILS % (MANUAL) 3 % (0-8); MONOCYTES % (MANUAL) 4 % (2-10)
--- NOTE | 2018-05-04 07:42 | NUR ---
patient resting comfortably in bed, no s/s of distress. npo status at this time. will continue to monitor and provide pain management.
[2018-05-04] MEDS ORDERED: POTASSIUM CHLORIDE 50 ML IV SCH (11:00)
[2018-05-04] MEDS: POTASSIUM CHLORIDE 50 ML IV SCH ×2 (11:00→11:59)
[2018-05-04] MEDS ORDERED: POTASSIUM PHOSPHATE MM 7.5 MMOL in IV DEXTROSE 5% 100 ML IV ONE (11:00)
[2018-05-04 11:40] VITALS: BP 91/56
[2018-05-04] MEDS ORDERED: NEUTRA PHOS PACKET PO ONE (12:15)
[2018-05-04] MEDS ORDERED: POTASSIUM CHLORIDE 20 MEQ TAB.PRT.SR PO ONE (12:15)
[2018-05-04] MEDS ORDERED: MAGNESIUM SULFATE/D5W 100 ML IV SCH (13:00)
[2018-05-04] MEDS ORDERED: HYDR-552 PO (13:27)
[2018-05-04 13:38] VITALS: BP 113/68
--- NOTE | 2018-05-04 14:00 | NUR ---
patient discharged at this time in stable condition, no s/s of distress. vital signs stable. electrolytes supplemented per md orders. discharge instructions provided, discharge packet completed/sign/given a copy to patient. written prescriptions given to patient. patient instructed to follow-up with primary care physician within one week of being discharged from [facility]. iv-access discontinued, id-band taken off. discharge education provided regarding diagnosis. patient's mode of transportation: . safely discharged from hospital premises.
== END 2018-05-04 14:00 | disposition home or self-care (01) | DRG 243 ==
LOC: ER 15:20 → MED 20:26
PROVIDERS: ADMIT Internal Medicine; ATTEND Internal Medicine
DX: K22.4 Dyskinesia of esophagus (principal); Q79.59 Other congenital malformations of abdominal wall; D68.9 Coagulation defect, unspecified; E44.0 Moderate protein-calorie malnutrition; E87.1 Hypo-osmolality and hyponatremia; I27.20 Pulmonary hypertension, unspecified; E83.39 Other disorders of phosphorus metabolism; K21.9 Gastro-esophageal reflux disease without esophagitis; K76.0 Fatty (change of) liver, not elsewhere classified; E83.51 Hypocalcemia; I11.9 Hypertensive heart disease without heart failure; R74.0 Nonspecific elevation of levels of transaminase and lactic acid dehydrogenase [LDH]; K44.9 Diaphragmatic hernia without obstruction or gangrene; Z68.38 Body mass index [BMI] 38.0-38.9, adult; Z87.440 Personal history of urinary (tract) infections; K57.90 Diverticulosis of intestine, part unspecified, without perforation or abscess without bleeding; Z79.899 Other long term (current) drug therapy; M17.0 Bilateral primary osteoarthritis of knee; E87.6 Hypokalemia; E03.9 Hypothyroidism, unspecified; E66.9 Obesity, unspecified; Q63.2 Ectopic kidney; R20.2 Paresthesia of skin; E78.5 Hyperlipidemia, unspecified; I70.0 Atherosclerosis of aorta; Z83.3 Family history of diabetes mellitus; Z82.49 Family history of ischemic heart disease and other diseases of the circulatory system; Z90.49 Acquired absence of other specified parts of digestive tract; Z90.710 Acquired absence of both cervix and uterus; D72.829 Elevated white blood cell count, unspecified
CPT/HCPCS: 36415; 70030-TC; 71045; 83690; 83735; 84100; 84443; 85025; 85730; 87086; 93005; A4663; C9113; J1200; J2270; J2405; J3480; J3490; J7030; J7042; J7060

== ENCOUNTER 2018-05-05 15:32 | Emergency (ER) | payer OTHER ==
[~2018-05-05] VITALS: Ht 170.2 cm; Wt 99.8 kg
[~2018-05-05 15:32] MED LIST changes: +HYDR-552 PO
--- NOTE | 2018-05-05 18:35 | NUR ---
PATIENT STQATES SHE IS HER FOR "SAME THING, ABDOMINAL PAIN"
--- NOTE | 2018-05-05 19:01 | NUR ---
HANDOFF REPORT GIVEN TO MARI MULLINS
[2018-05-05] MEDS ORDERED: METOCLOPRAMIDE HCL 10 MG/2 ML VIAL IV ONE (19:15)
[2018-05-05] MEDS ORDERED: KETOROLAC TROMETHAMINE 15 MG INJ IV ONE (19:15)
[2018-05-05 19:18] LABS: BASOPHILS # (AUTO) 0.1 K/uL (0.0-8.0); BASOPHILS % (AUTO) 1.1 % (0.0-2.0); EOSINOPHILS # (AUTO) 0.6 K/uL (0.0-0.7); EOSINOPHILS % (AUTO) 4.7 % (0.0-7.0); HEMATOCRIT 36.8 % (31.2-41.9); HEMOGLOBIN 11.9 g/dL (10.9-14.3); LYMPHOCYTES # (AUTO) 2.1 K/uL (20.0-40.0); LYMPHOCYTES % (AUTO) 16.9 % (20.5-51.5); MEAN CORPUSCULAR HEMOGLOBIN 26.5 uug (24.7-32.8); MEAN CORPUSCULAR HGB CONC 32 g/dL (32.3-35.6); MEAN CORPUSCULAR VOLUME 81.7 fL (75.5-95.3); MONOCYTES # (AUTO) 0.7 K/uL (2.0-10.0); MONOCYTES % (AUTO) 5.5 % (0.0-11.0); NEUTROPHILS # (AUTO) 8.8 K/uL (1.8-8.9); NEUTROPHILS % (AUTO) 71.8 % (38.5-71.5); PLATELET COUNT (AUTO) 160 K/uL (179-408); WHITE BLOOD COUNT (AUTO) 12.2 K/uL (3.8-11.8)
[2018-05-05] MEDS ORDERED: METOCLOPRAMIDE HCL 10 MG/2 ML VIAL ONE (19:18)
[2018-05-05] MEDS ORDERED: KETOROLAC TROMETHAMINE 30 MG INJ ONE (19:18)
[2018-05-05 19:19] LABS: *BLOOD, URINE NEGATIVE (NEGATIVE); *CLARITY,URINE SLIGHTLY CLOUDY (CLEAR); *COLOR,URINE YELLOW (YELLOW); *KETONES,URINE NEGATIVE (NEGATIVE); *PROTEIN,URINE TRACE (NEGATIVE); *UROBILINOGEN,URINE 0.2 E.U./dl (NORMAL); LEUKOCYTE ESTERASE ,URINE NEGATIVE (NEGATIVE); NITRITE, URINE NEGATIVE (NEGATIVE); UGLUCOSE NEGATIVE (NEGATIVE)
[2018-05-05] MEDS ORDERED: KETOROLAC TROMETHAMINE 15 MG INJ ONE (19:19)
[2018-05-05 19:31] LABS: *BILIRUBIN,URIN 1+ (NEGATIVE)
[2018-05-05 19:36] LABS: BACTERIA,URINE RARE /HPF (NONE SEEN); RBC,URINE 0-3 /HPF (0-3); SQUAMOUS EPITHELIAL CELL,UR FEW /HPF (NONE SEEN)
[2018-05-05 19:39] LABS: CREATININE 0.9 mg/dL (0.6-1.3); POTASSIUM 3.4 mmol/L (3.5-5.1)
[2018-05-05 19:45] LABS: BILIRUBIN,DIRECT 0.2 mg/dL (0.0-0.2); BILIRUBIN,TOTAL 0.6 mg/dL (0.2-1.0); TOTAL PROTEIN, SERUM 7.4 g/dL (6.4-8.2)
--- NOTE | 2018-05-05 21:06 | NUR ---
IV removed. Catheter intact and site benign. Pressure and 4x4 gauze applied to site. No bleeding noted.
--- NOTE | 2018-05-05 21:09 | NUR ---
Patient discharged to home in stable conditon. Written and verbal after care instructions given. Patient verbalizes understanding of instructions. Pt ambulated out of ER in steady gait with . All belongings with pt. VSS. NAD noted.
[2018-05-05 21:10] VITALS: BP 111/74
== END 2018-05-05 21:11 | disposition home or self-care (01) ==
LOC: ER 15:34
DX: R10.13 Epigastric pain (principal); I10 Essential (primary) hypertension; E78.5 Hyperlipidemia, unspecified; E03.9 Hypothyroidism, unspecified; Z90.710 Acquired absence of both cervix and uterus; Z79.891 Long term (current) use of opiate analgesic; Z79.899 Other long term (current) drug therapy
CPT/HCPCS: 36415; 71045; 74021; 80048; 80076; 81001; 83690; 84484; 84703; 85025; 85730; 93005; 96374; 96375; 99285; A4663; J1885; J2765; 70030-TC

== ENCOUNTER 2018-05-31 10:47 | Emergency (ER) | payer OTHER ==
[~2018-05-31] VITALS: Ht 170.2 cm; Wt 99.8 kg
[~2018-05-31 10:47] MED LIST changes: -ATOR20TA PO; -HYDROCHLOROT 25 MG PO; -LACT1CAP57 PO; -SULF1TAB3 PO
--- NOTE | 2018-05-31 11:14 | NUR ---
Patients remains in the room,awaiting to be seen by .Ice pack applied to left knee.
[2018-05-31] MEDS ORDERED: IBUPROFEN 800 MG TABLET PO ONE (11:30)
[2018-05-31] MEDS ORDERED: IBUPROFEN 800 MG TABLET ONE (11:37)
[2018-05-31 11:50] VITALS: BP 140/84
== END 2018-05-31 11:50 | disposition home or self-care (01) ==
LOC: ER 10:49
DX: M25.562 Pain in left knee (principal); I10 Essential (primary) hypertension; E78.5 Hyperlipidemia, unspecified; K21.9 Gastro-esophageal reflux disease without esophagitis; G89.29 Other chronic pain; M54.9 Dorsalgia, unspecified; E03.9 Hypothyroidism, unspecified; Z90.710 Acquired absence of both cervix and uterus; W01.0XXA Fall on same level from slipping, tripping and stumbling without subsequent striking against object, initial encounter; Y93.89 Activity, other specified; Y92.89 Other specified places as the place of occurrence of the external cause; Y99.8 Other external cause status
CPT/HCPCS: A4663

== ENCOUNTER 2018-08-22 10:05 | Emergency (ER) | payer OTHER ==
[~2018-08-22] VITALS: Ht 170.2 cm; Wt 105.2 kg
[2018-08-22] MEDS ORDERED: HYDR25TA4 PO (10:08)
--- NOTE | 2018-08-22 10:30 | NUR ---
IV site placed on Right AC
--- NOTE | 2018-08-22 10:46 | NUR ---
at bedside to examine patient.
[2018-08-22] MEDS ORDERED: IV NORMAL SALINE 1000 ML BAG IV ONE (11:00)
--- NOTE | 2018-08-22 11:10 | NUR ---
Normal saline bolus initiated.
[2018-08-22 11:18] LABS: BASOPHILS # (AUTO) 0.1 K/uL (0.0-8.0); BASOPHILS % (AUTO) 1.3 % (0.0-2.0); EOSINOPHILS # (AUTO) 0.1 K/uL (0.0-0.7); EOSINOPHILS % (AUTO) 2.2 % (0.0-7.0); HEMATOCRIT 38.8 % (31.2-41.9); LYMPHOCYTES # (AUTO) 2.8 K/uL (20.0-40.0); MEAN CORPUSCULAR HEMOGLOBIN 27.7 uug (24.7-32.8); MEAN CORPUSCULAR HGB CONC 33 g/dL (32.3-35.6); MEAN CORPUSCULAR VOLUME 82.9 fL (75.5-95.3); MONOCYTES # (AUTO) 0.4 K/uL (2.0-10.0); MONOCYTES % (AUTO) 6.9 % (0.0-11.0); NEUTROPHILS # (AUTO) 2.4 K/uL (1.8-8.9); NEUTROPHILS % (AUTO) 41.6 % (38.5-71.5); PLATELET COUNT (AUTO) 207 K/uL (179-408); RED BLOOD CELL COUNT(AUTO) 4.68 MIL/uL (3.63-4.92); WHITE BLOOD COUNT (AUTO) 5.9 K/uL (3.8-11.8)
[2018-08-22] MEDS ORDERED: SWABABLE VALVE TRANSFER SET EA MC ONE (11:23)
[2018-08-22] MEDS ORDERED: IOHEXOL 300MG/ML 100 ML INFUS..BTL ONE (11:23)
[2018-08-22] MEDS ORDERED: IV NORMAL SALINE 250 ML IV ONE (11:23)
[2018-08-22] MEDS ORDERED: NORMAL SALINE FLUSH 10 ML DISP.SYRIN ONE (11:23)
[2018-08-22 11:24] LABS: POTASSIUM 3.5 mmol/L (3.5-5.1)
[2018-08-22 11:30] LABS: BILIRUBIN,DIRECT 0.1 mg/dL (0.0-0.2); BILIRUBIN,TOTAL 0.2 mg/dL (0.2-1.0); TOTAL PROTEIN, SERUM 7.8 g/dL (6.4-8.2)
[2018-08-22] MEDS ORDERED: LORAZEPAM 2 MG/1 ML VIAL IV ONE (11:45)
[2018-08-22] MEDS ORDERED: LORAZEPAM 2 MG/1 ML VIAL ONE (11:46)
--- NOTE | 2018-08-22 11:55 | NUR ---
Pt down to CT
--- NOTE | 2018-08-22 12:00 | NUR ---
Pt transferred to CT scan
--- NOTE | 2018-08-22 12:33 | NUR ---
Pt returned from CT scan
[2018-08-22] MEDS ORDERED: KETOROLAC TROMETHAMINE 15 MG INJ IVP ONE (13:00)
[2018-08-22] MEDS ORDERED: KETOROLAC TROMETHAMINE 15 MG INJ ONE (13:03)
--- NOTE | 2018-08-22 13:38 | NUR ---
IV removed. Catheter intact and site benign. Pressure and 4x4 gauze applied to site. No bleeding noted. Patient discharged to home in stable conditon. Written and verbal after care instructions given to patient and family. Patient and family verbalized understanding of instructions but wants to talk to our ER doctor re: "stronger prescription" and wants to ask more questions to our doctor. Dr Chew notified.
[2018-08-22 13:53] VITALS: BP 122/87
--- NOTE | 2018-08-22 14:07 | NUR ---
Dr Chew is printing additional discharge instructions/precription.
== END 2018-08-22 14:20 | disposition home or self-care (01) ==
LOC: ER 10:05
DX: R07.89 Other chest pain (principal); R51 Headache; I10 Essential (primary) hypertension; E78.5 Hyperlipidemia, unspecified; K21.9 Gastro-esophageal reflux disease without esophagitis; G89.29 Other chronic pain; M54.9 Dorsalgia, unspecified; E03.9 Hypothyroidism, unspecified; Z90.710 Acquired absence of both cervix and uterus
CPT/HCPCS: 36415; 70460; 70487; 71045; 80048; 80076; 84484; 85025; 85730; 93005; 96374; 96375; 99285; J1885; J2060; Q9967; 70030-TC; A4663; J3490; J7030; J7050

== ENCOUNTER 2018-11-05 20:13 | Emergency (ER) | payer OTHER ==
[~2018-11-05] VITALS: Ht 170.2 cm; Wt 108.9 kg
[~2018-11-05 20:13] MED LIST changes: -ACET325T53 PO; -HYDR-552 PO; +HYDR25TA4 PO
[2018-11-05] MEDS ORDERED: HYDROCODONE/APAP 5-325MG TABLET PO ONE (21:00)
[2018-11-05] MEDS ORDERED: CYCLOBENZAPRINE HCL 10 MG TABLET PO ONE (21:00)
--- NOTE | 2018-11-05 21:00 | NUR ---
Pt. ambulated into ED w06/05 R ear pain that radiates down the neck and upper shoulder since last night, denies RICHARDSON/F/C/N/V, no visual disturbances reported,
[2018-11-05] MEDS ORDERED: CYCLOBENZAPRINE HCL 10 MG TABLET ONE (21:08)
[2018-11-05] MEDS ORDERED: HYDROCODONE/APAP 5-325MG TABLET ONE (21:08)
--- NOTE | 2018-11-05 21:15 | NUR ---
Patient discharged to home in stable conditon. Written and verbal after care instructions given. Patient verbalizes understanding of instructions. Pt. d/c w/ prescription per MD order, d/c papers signed, all belongings w/ pt., instructed not to drive, ambulated out of ED w/ steady gait, ID band removed,
== END 2018-11-05 21:19 | disposition home or self-care (01) ==
LOC: ER 20:15
DX: G89.29 Other chronic pain (principal); M54.5 Low back pain; E66.01 Morbid (severe) obesity due to excess calories; H92.01 Otalgia, right ear; M62.838 Other muscle spasm; I10 Essential (primary) hypertension; E78.5 Hyperlipidemia, unspecified; K21.9 Gastro-esophageal reflux disease without esophagitis; E03.9 Hypothyroidism, unspecified; Z90.710 Acquired absence of both cervix and uterus; Z79.899 Other long term (current) drug therapy
CPT/HCPCS: A4663

== ENCOUNTER 2019-02-02 08:52 | Emergency (ER) | payer OTHER ==
[~2019-02-02] VITALS: Ht 170.2 cm; Wt 108.9 kg
== END 2019-02-02 09:34 | disposition home or self-care (01) ==
LOC: ER 08:52
DX: M79.2 Neuralgia and neuritis, unspecified (principal); M79.671 Pain in right foot; I10 Essential (primary) hypertension; E78.5 Hyperlipidemia, unspecified; K21.9 Gastro-esophageal reflux disease without esophagitis; E03.9 Hypothyroidism, unspecified; Z90.710 Acquired absence of both cervix and uterus; Z79.899 Other long term (current) drug therapy
CPT/HCPCS: A4663

== ENCOUNTER 2019-02-23 09:50 | Emergency (ER) | payer OTHER ==
[~2019-02-23] VITALS: Ht 170.2 cm; Wt 108.9 kg
--- NOTE | 2019-02-23 09:57 | NUR ---
pt is in room #2b. dr marcelino evaluated the pt.
--- NOTE | 2019-02-23 10:05 | NUR ---
PT WAS D/C'd TO HOME AFTER ER MD EVALUATION. D/C INSTRUCTIONS GIVEN TO THE PT.
[2019-02-23 10:06] VITALS: BP 146/87
== END 2019-02-23 10:08 | disposition home or self-care (01) ==
LOC: ER 09:50
DX: M54.5 Low back pain (principal); M54.6 Pain in thoracic spine; I10 Essential (primary) hypertension; E78.5 Hyperlipidemia, unspecified; K21.9 Gastro-esophageal reflux disease without esophagitis; E03.9 Hypothyroidism, unspecified; Z90.710 Acquired absence of both cervix and uterus; Z79.899 Other long term (current) drug therapy
CPT/HCPCS: A4663

== ENCOUNTER 2021-03-24 08:57 | Emergency (ER) | payer OTHER ==
[~2021-03-24] VITALS: Ht 167.6 cm; Wt 104.3 kg
--- NOTE | 2021-03-24 09:18 | NUR ---
at bedside for MSE at this time.
[2021-03-24] MEDS ORDERED: VANCOMYCIN IV 1,000 MG in IV DEXTROSE 5% 250 ML IV ONE (09:30)
[2021-03-24] MEDS ORDERED: diphenhydrAMINE 50 MG/1 ML VIAL IV ONE ×2 (09:30→11:30)
[2021-03-24] MEDS ORDERED: KETOROLAC TROMETHAMINE 15 MG INJ IVP ONE (09:30)
[2021-03-24] MEDS ORDERED: CEFTRIAXONE 1 G in IV DEXTROSE 5% 50 ML IV ONE (09:30)
[2021-03-24] MEDS ORDERED: CEFTRIAXONE /D5W 50ML IVPB **ER PYXIS IV ONE (09:40)
[2021-03-24] MEDS ORDERED: KETOROLAC TROMETHAMINE 15 MG INJ ONE (09:40)
[2021-03-24] MEDS ORDERED: diphenhydrAMINE 50 MG/1 ML VIAL ONE ×2 (09:40→11:30)
--- NOTE | 2021-03-24 09:40 | NUR ---
IV on R AC 20G. Orders received and implemented.
--- NOTE | 2021-03-24 09:57 | NUR ---
Patient is resting comfortably in bed watching TV. States feeling better post-med administration. No S/S of distress or SOB noted at this time.
[2021-03-24] MEDS ORDERED: ACETAMINOPHEN ES 500 MG TABLET PO ONE (11:30)
[2021-03-24] MEDS ORDERED: SULF1TAB48 PO (11:30)
[2021-03-24] MEDS ORDERED: ACETAMINOPHEN ES 500 MG TABLET ONE (11:36)
[2021-03-24 11:47] VITALS: BP 120/78
--- NOTE | 2021-03-24 11:48 | NUR ---
IV removed. Catheter intact and site benign. Pressure and 4x4 gauze applied to site. No bleeding noted. Patient discharged to home in stable condition, walked with steady gait accompanied with . Written and verbal after care instructions given. Patient verbalizes understanding of instructions. Stressed follow up or return to ER for worsening s/s.
== END 2021-03-24 11:49 | disposition home or self-care (01) ==
LOC: ER 08:57
DX: S50.861A Insect bite (nonvenomous) of right forearm, initial encounter (principal); L03.113 Cellulitis of right upper limb; W57.XXXA Bitten or stung by nonvenomous insect and other nonvenomous arthropods, initial encounter; Y92.89 Other specified places as the place of occurrence of the external cause; I10 Essential (primary) hypertension; E78.5 Hyperlipidemia, unspecified; E03.9 Hypothyroidism, unspecified; Z79.890 Hormone replacement therapy; Z79.899 Other long term (current) drug therapy; K76.0 Fatty (change of) liver, not elsewhere classified; K21.9 Gastro-esophageal reflux disease without esophagitis; K44.9 Diaphragmatic hernia without obstruction or gangrene; I27.20 Pulmonary hypertension, unspecified
CPT/HCPCS: 96365; 96366; 96368; 96375; 96376; 99284; J0696; J1200 ×2; J1885; J3370; A9150

== ENCOUNTER 2021-05-05 17:45 | Emergency (ER) | payer OTHER ==
[~2021-05-05] VITALS: Ht 167.6 cm; Wt 104.3 kg
[~2021-05-05 17:45] MED LIST changes: +SULF1TAB48 PO
--- NOTE | 2021-05-05 18:20 | NUR ---
PT IS IN ROOM #2B. DR WOODALL EVALUATED THE PT.
[2021-05-05] MEDS ORDERED: GUAI237L83 PO (18:35)
[2021-05-05] MEDS ORDERED: DEXAMETHASONE SOD PHOSPHATE 4 MG INJ IM ONE (18:45)
[2021-05-05 18:59] VITALS: BP 136/81
--- NOTE | 2021-05-05 18:59 | NUR ---
PT WAS D/C'd TO HOME. D/C INSTRUCTIONS GIVEN TO THE PT BY DR WOODALL.
[2021-05-05] MEDS ORDERED: DEXAMETHASONE SOD PHOSPHATE 10 MG INJ ONE (19:02)
== END 2021-05-05 19:00 | disposition home or self-care (01) ==
LOC: ER 17:45
DX: J02.9 Acute pharyngitis, unspecified (principal); E03.9 Hypothyroidism, unspecified; Z79.890 Hormone replacement therapy; I10 Essential (primary) hypertension; E78.5 Hyperlipidemia, unspecified; K21.9 Gastro-esophageal reflux disease without esophagitis; K44.9 Diaphragmatic hernia without obstruction or gangrene; R00.1 Bradycardia, unspecified
CPT/HCPCS: 96372; 99283; J1100; A4663

== ENCOUNTER 2021-10-01 17:16 | Emergency (ER) | payer OTHER ==
[~2021-10-01] VITALS: Ht 167.6 cm; Wt 104.3 kg
[~2021-10-01 17:16] MED LIST changes: +GUAI237L83 PO
--- NOTE | 2021-10-01 18:17 | NUR ---
Patient discharged to home in stable condition. Written and verbal after care instructions given. Patient verbalizes understanding of instructions. Stressed follow up or return to ER for worsening s/s.
== END 2021-10-01 18:20 | disposition home or self-care (01) ==
LOC: ER 17:17
DX: J02.9 Acute pharyngitis, unspecified (principal); Z20.822 Contact with and (suspected) exposure to COVID-19; E03.9 Hypothyroidism, unspecified; I10 Essential (primary) hypertension; E78.5 Hyperlipidemia, unspecified; G89.29 Other chronic pain; M54.9 Dorsalgia, unspecified; Q63.2 Ectopic kidney; Z90.710 Acquired absence of both cervix and uterus; K21.9 Gastro-esophageal reflux disease without esophagitis; Z79.890 Hormone replacement therapy
CPT/HCPCS: A4663

== ENCOUNTER 2021-11-06 08:02 | Emergency (ER) | payer OTHER ==
[~2021-11-06] VITALS: Ht 167.6 cm; Wt 104.3 kg
[2021-11-06 09:10] LABS: HEMATOCRIT 44.4 % (31.2-41.9); MEAN CORPUSCULAR HEMOGLOBIN 27.6 uug (24.7-32.8); MEAN CORPUSCULAR VOLUME 83.7 fL (75.5-95.3); PLATELET COUNT (AUTO) 153 K/uL (179-408)
[2021-11-06 09:12] LABS: POTASSIUM 3.4 mmol/L (3.5-5.1)
--- NOTE | 2021-11-06 09:22 | NUR ---
PT REFUSED EKG AND SALINE LOCK
[2021-11-06 09:30] LABS: BILIRUBIN,DIRECT 0.1 mg/dL (0.0-0.2); BILIRUBIN,TOTAL 0.4 mg/dL (0.2-1.0); TOTAL PROTEIN, SERUM 8.6 g/dL (6.4-8.2)
[2021-11-06 11:31] VITALS: BP 118/66
== END 2021-11-06 11:31 | disposition home or self-care (01) ==
LOC: ER 08:02
DX: U07.1 COVID-19 (principal); E03.9 Hypothyroidism, unspecified; G89.29 Other chronic pain; M54.9 Dorsalgia, unspecified; I27.20 Pulmonary hypertension, unspecified; Z79.890 Hormone replacement therapy; K21.9 Gastro-esophageal reflux disease without esophagitis; K44.9 Diaphragmatic hernia without obstruction or gangrene; E78.5 Hyperlipidemia, unspecified; I10 Essential (primary) hypertension; Z90.710 Acquired absence of both cervix and uterus
CPT/HCPCS: 36415; 70030-TC; 71045; 83605; 85025; 85730; 87040; 93005; A4663

== ENCOUNTER 2022-01-14 10:19 | Emergency (ER) | payer OTHER ==
[~2022-01-14] VITALS: Ht 167.6 cm; Wt 104.3 kg
--- NOTE | 2022-01-14 10:42 | NUR ---
PT SEEN AND EXAMINED BY DR WEBBER.
[2022-01-14 10:45] LABS: *BILIRUBIN,URIN NEGATIVE (NEGATIVE); *BLOOD, URINE NEGATIVE (NEGATIVE); *CLARITY,URINE CLEAR (CLEAR); *COLOR,URINE YELLOW (YELLOW); *KETONES,URINE NEGATIVE (NEGATIVE); *UROBILINOGEN,URINE 0.2 E.U./dl (NORMAL); LEUKOCYTE ESTERASE ,URINE NEGATIVE (NEGATIVE); NITRITE, URINE NEGATIVE (NEGATIVE); PH,URINE 5.5 (5.0-8.0); UGLUCOSE NEGATIVE (NEGATIVE)
[2022-01-14 11:03] LABS: HEMATOCRIT 40.3 % (31.2-41.9); MEAN CORPUSCULAR HEMOGLOBIN 28.2 uug (24.7-32.8); MEAN CORPUSCULAR VOLUME 87.3 fL (75.5-95.3); PLATELET COUNT (AUTO) 243 K/uL (179-408)
[2022-01-14 11:12] LABS: CREATININE 0.9 mg/dL (0.6-1.3); POTASSIUM 4.1 mmol/L (3.5-5.1)
[2022-01-14] MEDS ORDERED: KETOROLAC TROMETHAMINE 30 MG INJ IM ONE (11:30)
[2022-01-14] MEDS ORDERED: KETOROLAC TROMETHAMINE 30 MG INJ ONE (11:35)
[2022-01-14 11:37] LABS: BILIRUBIN,DIRECT 0.1 mg/dL (0.0-0.2); BILIRUBIN,TOTAL 0.2 mg/dL (0.2-1.0); TOTAL PROTEIN, SERUM 7.5 g/dL (6.4-8.2)
[2022-01-14 11:49] VITALS: BP 130/90
--- NOTE | 2022-01-14 11:50 | NUR ---
Patient discharged to home in stable condition. Written and verbal after care instructions given. Patient verbalizes understanding of instructions. Stressed follow up or return to ER for worsening s/s. Pt left ER w/ steady gait.
== END 2022-01-14 11:51 | disposition home or self-care (01) ==
LOC: ER 10:19
DX: M54.9 Dorsalgia, unspecified (principal); R10.10 Upper abdominal pain, unspecified; K57.90 Diverticulosis of intestine, part unspecified, without perforation or abscess without bleeding; E03.9 Hypothyroidism, unspecified; Z79.890 Hormone replacement therapy; Z90.49 Acquired absence of other specified parts of digestive tract; Q63.2 Ectopic kidney; I10 Essential (primary) hypertension; E78.5 Hyperlipidemia, unspecified; K21.9 Gastro-esophageal reflux disease without esophagitis; I27.20 Pulmonary hypertension, unspecified; Z86.16 Personal history of COVID-19
CPT/HCPCS: 36415; 74176; 80048; 80076; 81003; 83690; 85025; 96372; 99284; J1885; A4663

== ENCOUNTER 2022-02-19 10:55 | Emergency (ER) | payer OTHER ==
[~2022-02-19] VITALS: Ht 167.6 cm; Wt 104.3 kg
--- NOTE | 2022-02-19 10:55 | NUR ---
at bedside to examine pt.
[2022-02-19] MEDS ORDERED: HYDR30CR7 TP (11:12)
--- NOTE | 2022-02-19 11:17 | NUR ---
DCD and prescriptions provided to pt. who verbalized understanding. pt. left room ambulatory steady gait AAOx4.
== END 2022-02-19 11:19 | disposition home or self-care (01) ==
LOC: ER 10:55
DX: R21 Rash and other nonspecific skin eruption (principal); L29.9 Pruritus, unspecified; L83 Acanthosis nigricans; E78.5 Hyperlipidemia, unspecified; K21.9 Gastro-esophageal reflux disease without esophagitis; K44.9 Diaphragmatic hernia without obstruction or gangrene; Z86.16 Personal history of COVID-19; E03.9 Hypothyroidism, unspecified; Z79.899 Other long term (current) drug therapy; Z79.890 Hormone replacement therapy; I10 Essential (primary) hypertension
CPT/HCPCS: A4663

== ENCOUNTER 2023-03-17 10:51 | Emergency (ER) | payer OTHER ==
[~2023-03-17] VITALS: Ht 167.6 cm; Wt 104.3 kg
[~2023-03-17 10:51] MED LIST changes: +HYDR30CR7 TP
--- NOTE | 2023-03-17 10:58 | NUR ---
Dr Coleman at the bedside for MSE.
[2023-03-17 11:31] LABS: HEMATOCRIT 38.8 % (31.2-41.9); MEAN CORPUSCULAR HEMOGLOBIN 26.9 uug (24.7-32.8); MEAN CORPUSCULAR VOLUME 83.8 fL (75.5-95.3); PLATELET COUNT (AUTO) 225 K/uL (179-408)
[2023-03-17 11:53] LABS: CARBON DIOXIDE 29 mmol/L (21-32); CHLORIDE 102 mmol/L (98-107); CREATININE 0.8 mg/dL (0.6-1.3); GLUCOSE 90 mg/dL (74-106); POTASSIUM 3.8 mmol/L (3.5-5.1); UREA NITROGEN, BLOOD 15 mg/dL (7-18)
[2023-03-17] MEDS ORDERED: FAMO-132 PO (12:33)
[2023-03-17 12:53] VITALS: BP 116/68
== END 2023-03-17 12:56 | disposition home or self-care (01) ==
LOC: ER 10:51
DX: R05.3 Chronic cough (principal); I10 Essential (primary) hypertension; R07.89 Other chest pain; G43.909 Migraine, unspecified, not intractable, without status migrainosus; E78.5 Hyperlipidemia, unspecified; K21.9 Gastro-esophageal reflux disease without esophagitis; E03.9 Hypothyroidism, unspecified; G89.29 Other chronic pain; M54.9 Dorsalgia, unspecified; Z90.710 Acquired absence of both cervix and uterus; Z79.899 Other long term (current) drug therapy
CPT/HCPCS: 36415; 71045; 84484; 85025; 93005; A4663

== ENCOUNTER 2023-08-15 09:22 | Emergency (ER) | payer OTHER ==
[~2023-08-15] VITALS: Ht 170.2 cm; Wt 108.9 kg
[~2023-08-15 09:22] MED LIST changes: +FAMO-132 PO
[2023-08-15] MEDS ORDERED: IV NORMAL SALINE 1000 ML BAG IV ONE (09:45)
[2023-08-15] MEDS ORDERED: ONDANSETRON 4 MG/2 ML VIAL IV ONE ×2 (09:45→10:45)
[2023-08-15] MEDS ORDERED: MORPHINE SULFATE 4 MG/1 ML DISP.SYRIN IV ONE (09:45)
[2023-08-15] MEDS ORDERED: ONDANSETRON 4 MG/2 ML VIAL ONE ×2 (09:59→10:48)
[2023-08-15] MEDS ORDERED: MORPHINE SULFATE 4 MG/1 ML DISP.SYRIN ONE (09:59)
[2023-08-15 10:04] LABS: *BILIRUBIN,URIN NEGATIVE (NEGATIVE); *CLARITY,URINE CLEAR (CLEAR); *COLOR,URINE YELLOW (YELLOW); *KETONES,URINE NEGATIVE (NEGATIVE); *PROTEIN,URINE NEGATIVE (NEGATIVE); *UROBILINOGEN,URINE 0.2 E.U./dl (NORMAL); LEUKOCYTE ESTERASE ,URINE NEGATIVE (NEGATIVE); NITRITE, URINE NEGATIVE (NEGATIVE); PH,URINE 5.5 (5.0-8.0); UGLUCOSE NEGATIVE (NEGATIVE)
[2023-08-15 10:06] LABS: BASOPHILS # (AUTO) 0.1 K/UL (0.0-0.2); BASOPHILS % (AUTO) 0.9 % (0.0-2.0); EOSINOPHILS # (AUTO) 0.1 K/uL (0.0-0.7); EOSINOPHILS % (AUTO) 2.4 % (0.0-7.0); HEMATOCRIT 40.3 % (31.2-41.9); HEMOGLOBIN 13.1 g/dL (10.9-14.3); LYMPHOCYTES # (AUTO) 2.6 K/uL (0.8-4.8); LYMPHOCYTES % (AUTO) 41.9 % (20.5-51.5); MEAN CORPUSCULAR HEMOGLOBIN 27.2 uug (24.7-32.8); MEAN CORPUSCULAR HGB CONC 33 g/dL (32.3-35.6); MEAN CORPUSCULAR VOLUME 83.8 fL (75.5-95.3); MONOCYTES # (AUTO) 0.5 K/uL (0.1-1.30); MONOCYTES % (AUTO) 7.9 % (0.0-11.0); NEUTROPHILS # (AUTO) 2.9 K/uL (1.8-8.9); NEUTROPHILS % (AUTO) 46.9 % (38.5-71.5); PLATELET COUNT (AUTO) 255 K/uL (179-408); RED BLOOD CELL COUNT(AUTO) 4.81 MIL/uL (3.63-4.92); RED CELL DISTRIBUTION WIDTH 17.6 % (12.3-17.7); WHITE BLOOD COUNT (AUTO) 6.2 K/uL (3.8-11.8)
[2023-08-15 10:06] LABS: *BLOOD, URINE TRACE (NEGATIVE)
[2023-08-15 10:23] LABS: RBC,URINE 0-3 /HPF (0-3); WBC,URINE NONE SEEN /HPF (0-3)
[2023-08-15 10:24] LABS: BACTERIA,URINE FEW /HPF (NONE SEEN); SQUAMOUS EPITHELIAL CELL,UR MODERATE /HPF (NONE SEEN)
[2023-08-15 10:25] LABS: DIFFERENTIAL COMMENT 1
[2023-08-15 10:42] LABS: ALBUMIN 3.4 g/dL (3.4-5.0); BILIRUBIN,TOTAL 0.5 mg/dL (0.2-1.0); CALCIUM 9.5 mg/dL (8.5-10.1); CREATININE 0.9 mg/dL (0.6-1.3); POTASSIUM 3.5 mmol/L (3.5-5.1); TOTAL PROTEIN, SERUM 7.8 g/dL (6.4-8.2)
[2023-08-15] MEDS ORDERED: HYDROMORPHONE 1 MG/1 ML DISP.SYRIN IV ONE (10:45)
[2023-08-15] MEDS ORDERED: HYDROMORPHONE 1 MG/1 ML DISP.SYRIN ONE (10:48)
[2023-08-15] MEDS ORDERED: OMEP20TA20 PO (12:10)
[2023-08-15 12:31] VITALS: BP 119/71; TEMP 98.3; O2SAT 98
== END 2023-08-15 12:32 | disposition home or self-care (01) ==
LOC: ER 09:22
DX: K59.00 Constipation, unspecified (principal); K63.89 Other specified diseases of intestine; G43.909 Migraine, unspecified, not intractable, without status migrainosus; E78.5 Hyperlipidemia, unspecified; K21.9 Gastro-esophageal reflux disease without esophagitis; E03.9 Hypothyroidism, unspecified; G89.29 Other chronic pain; M54.9 Dorsalgia, unspecified; Z90.710 Acquired absence of both cervix and uterus; Z79.899 Other long term (current) drug therapy
CPT/HCPCS: 99285; 74176; 96374; 76705; 96361; 96375; 80053; 81001; 83690; 85025; 87040; 36415; 96376; 83605; J2405 ×2; J1170; J2270; J7040; A4606; A4663

== ENCOUNTER 2024-06-20 21:39 | Emergency (ER) | payer OTHER ==
[~2024-06-20] VITALS: Ht 170.2 cm; Wt 108.9 kg
[~2024-06-20 21:39] MED LIST changes: +OMEP20TA20 PO
[2024-06-20 21:47] VITALS: O2SAT 98
[2024-06-20 22:24] LABS: BASOPHILS # (AUTO) 0.1 K/UL (0.0-0.2); BASOPHILS % (AUTO) 1.1 % (0.0-2.0); EOSINOPHILS # (AUTO) 0.1 K/uL (0.0-0.7); EOSINOPHILS % (AUTO) 1.9 % (0.0-7.0); HEMATOCRIT 39.5 % (31.2-41.9); HEMOGLOBIN 12.8 g/dL (10.9-14.3); LYMPHOCYTES # (AUTO) 3.4 K/uL (0.8-4.8); LYMPHOCYTES % (AUTO) 45.7 % (20.5-51.5); MEAN CORPUSCULAR HEMOGLOBIN 27.5 uug (24.7-32.8); MEAN CORPUSCULAR HGB CONC 33 g/dL (32.3-35.6); MEAN CORPUSCULAR VOLUME 84.8 fL (75.5-95.3); MONOCYTES # (AUTO) 0.7 K/uL (0.1-1.30); NEUTROPHILS # (AUTO) 3.2 K/uL (1.8-8.9); NEUTROPHILS % (AUTO) 42.3 % (38.5-71.5); PLATELET COUNT (AUTO) 241 K/uL (179-408); RED BLOOD CELL COUNT(AUTO) 4.66 MIL/uL (3.63-4.92); RED CELL DISTRIBUTION WIDTH 15.4 % (12.3-17.7); WHITE BLOOD COUNT (AUTO) 7.5 K/uL (3.8-11.8)
[2024-06-20 22:27] LABS: DIFFERENTIAL COMMENT 1
[2024-06-20 22:35] LABS: CALCIUM 8.9 mg/dL (8.5-10.1); CARBON DIOXIDE 30 mmol/L (21-32); CHLORIDE 103 mmol/L (98-107); CREATININE 0.9 mg/dL (0.6-1.3); GLUCOSE 97 mg/dL (74-106); POTASSIUM 3.1 mmol/L (3.5-5.1); SODIUM SERUM 140 mmol/L (136-145); UREA NITROGEN, BLOOD 9 mg/dL (7-18)
[2024-06-20 22:48] LABS: ALANINE AMINOTRANSFERASE 23 U/L (14-59); ALBUMIN 3.3 g/dL (3.4-5.0); ALKALINE PHOSPHATASE 106 U/L (50-136); ASPARTATE AMINOTRANSFERASE 14 U/L (15-37); BILIRUBIN,DIRECT 0.1 mg/dL (0.0-0.2); BILIRUBIN,TOTAL 0.3 mg/dL (0.2-1.0); NT-PRO BNP 20 pg/mL (0-125); TOTAL PROTEIN, SERUM 7.3 g/dL (6.4-8.2)
== END 2024-06-20 23:20 | disposition home or self-care (01) ==
LOC: ER 21:54
DX: R07.0 Pain in throat (principal); R07.89 Other chest pain; R06.02 Shortness of breath; T50.995A Adverse effect of other drugs, medicaments and biological substances, initial encounter; G43.909 Migraine, unspecified, not intractable, without status migrainosus; E78.5 Hyperlipidemia, unspecified; K21.9 Gastro-esophageal reflux disease without esophagitis; E03.9 Hypothyroidism, unspecified; Z90.49 Acquired absence of other specified parts of digestive tract; Z79.891 Long term (current) use of opiate analgesic; Z79.899 Other long term (current) drug therapy; Y92.89 Other specified places as the place of occurrence of the external cause
CPT/HCPCS: 36415; 71045; 84484; 85025; 85730; 93005; A4606; A4663

== ENCOUNTER 2024-08-16 11:43 | Emergency (ER) | payer OTHER ==
[~2024-08-16] VITALS: Ht 170.2 cm; Wt 102.1 kg
[2024-08-16 12:18] LABS: *BILIRUBIN,URIN NEGATIVE (NEGATIVE); *BLOOD, URINE NEGATIVE (NEGATIVE); *CLARITY,URINE CLEAR (CLEAR); *COLOR,URINE YELLOW (YELLOW); *KETONES,URINE NEGATIVE (NEGATIVE); *PROTEIN,URINE NEGATIVE (NEGATIVE); *UROBILINOGEN,URINE 0.2 E.U./dl (NORMAL); LEUKOCYTE ESTERASE ,URINE NEGATIVE (NEGATIVE); NITRITE, URINE NEGATIVE (NEGATIVE); PH,URINE 5.5 (5.0-8.0); UGLUCOSE NEGATIVE (NEGATIVE)
[2024-08-16] MEDS ORDERED: ONDANSETRON 4 MG/2 ML VIAL ONE ×2 (12:30→15:00)
[2024-08-16] MEDS ORDERED: HYDROMORPHONE 1 MG/1 ML DISP.SYRIN ONE ×3 (12:31→13:20)
[2024-08-16 12:32] LABS: BASOPHILS # (AUTO) 0.2 K/UL (0.0-0.2); EOSINOPHILS % (AUTO) 0.7 % (0.0-7.0); HEMATOCRIT 40.9 % (31.2-41.9); HEMOGLOBIN 13.4 g/dL (10.9-14.3); LYMPHOCYTES # (AUTO) 2.3 K/uL (0.8-4.8); LYMPHOCYTES % (AUTO) 36.6 % (20.5-51.5); MEAN CORPUSCULAR HEMOGLOBIN 27.9 uug (24.7-32.8); MEAN CORPUSCULAR HGB CONC 33 g/dL (32.3-35.6); MEAN CORPUSCULAR VOLUME 85.1 fL (75.5-95.3); MONOCYTES # (AUTO) 0.3 K/uL (0.1-1.30); MONOCYTES % (AUTO) 4.4 % (0.0-11.0); NEUTROPHILS # (AUTO) 3.5 K/uL (1.8-8.9); NEUTROPHILS % (AUTO) 55.3 % (38.5-71.5); PLATELET COUNT (AUTO) 273 K/uL (179-408); RED BLOOD CELL COUNT(AUTO) 4.81 MIL/uL (3.63-4.92); RED CELL DISTRIBUTION WIDTH 15.7 % (12.3-17.7); WHITE BLOOD COUNT (AUTO) 6.4 K/uL (3.8-11.8)
[2024-08-16 12:33] LABS: DIFFERENTIAL COMMENT 1
[2024-08-16] MEDS: ONDANSETRON 4 MG/2 ML VIAL IV ONE ×2 (12:37→15:02)
[2024-08-16] MEDS: HYDROMORPHONE 1 MG/1 ML DISP.SYRIN IV ONE ×3 (12:37→15:02)
[2024-08-16] MEDS: IV NORMAL SALINE 1000 ML BAG IV ONE (12:37)
[2024-08-16 12:38] LABS: CALCIUM 9.6 mg/dL (8.5-10.1); CREATININE 0.8 mg/dL (0.6-1.3); POTASSIUM 3.4 mmol/L (3.5-5.1)
[2024-08-16 12:43] LABS: ALBUMIN 3.5 g/dL (3.4-5.0); BILIRUBIN,DIRECT 0.1 mg/dL (0.0-0.2); BILIRUBIN,TOTAL 0.5 mg/dL (0.2-1.0); TOTAL PROTEIN, SERUM 8.2 g/dL (6.4-8.2)
[2024-08-16] MEDS ORDERED: IOHEXOL 300MG/ML 100 ML INFUS..BTL ONE (13:09)
[2024-08-16] MEDS ORDERED: SWABABLE VALVE TRANSFER SET EA MC ONE (13:10)
[2024-08-16] MEDS ORDERED: IV NORMAL SALINE 250 ML IV ONE (13:10)
[2024-08-16] MEDS ORDERED: POTASSIUM BICARBONATE/CIT AC 25 MEQ TABLET.EFF ONE (13:20)
[2024-08-16] MEDS: POTASSIUM BICARBONATE/CIT AC 25 MEQ TABLET.EFF PO ONE (13:20)
[2024-08-16] MEDS ORDERED: HYDROMORPHONE 2 MG/1 ML DISP.SYRIN ONE (15:00)
[2024-08-16] MEDS ORDERED: ONDA4TAB5 PO (16:31)
[2024-08-16] MEDS ORDERED: HYDR2TAB4 PO (16:31)
[2024-08-16 17:00] VITALS: O2SAT 99
== END 2024-08-16 17:23 | disposition home or self-care (01) ==
LOC: ER 11:43
DX: R10.10 Upper abdominal pain, unspecified (principal); E78.00 Pure hypercholesterolemia, unspecified; I11.9 Hypertensive heart disease without heart failure; Z90.49 Acquired absence of other specified parts of digestive tract; Z90.710 Acquired absence of both cervix and uterus; Z79.899 Other long term (current) drug therapy; Z79.890 Hormone replacement therapy
CPT/HCPCS: 99285; 74177; 96374; 76705; 96361; 96375; 80076; 80048; 81003; 83690; 83735; 85025; 36415; 96376; J2405 ×2; Q9967; J1171 ×4; J7040; A4606; A4663

== ENCOUNTER 2025-10-04 15:48 | Emergency (ER) | payer OTHER ==
[~2025-10-04] VITALS: Ht 170.2 cm; Wt 94.8 kg
[~2025-10-04 15:48] MED LIST changes: +HYDR2TAB4 PO; +ONDA4TAB5 PO
[2025-10-04 15:59] VITALS: BP 143/89
[2025-10-04 16:09] LABS: PLATELET COUNT (AUTO) 227 K/uL (179-408); RED BLOOD CELL COUNT(AUTO) 4.88 MIL/uL (3.63-4.92); RED CELL DISTRIBUTION WIDTH 15.5 % (12.3-17.7); WHITE BLOOD COUNT (AUTO) 5.7 K/uL (3.8-11.8)
[2025-10-04 16:14] LABS: CREATININE 0.8 mg/dL (0.6-1.3); SODIUM SERUM 142 mmol/L (136-145); UREA NITROGEN, BLOOD 12 mg/dL (7-18)
[2025-10-04] MEDS ORDERED: IBUP600T51 PO (16:21)
[2025-10-04] MEDS ORDERED: LIDO700A30 TP (16:21)
[2025-10-04] MEDS ORDERED: CYCL5TAB4 PO (16:21)
[2025-10-04] MEDS ORDERED: KETOROLAC TROMETHAMINE 15 MG INJ ONE (16:41)
[2025-10-04] MEDS ORDERED: LIDOCAINE 5% PATCH TD ONE (16:41)
[2025-10-04] MEDS: LIDOCAINE 5% PATCH TD ONE (16:50)
[2025-10-04] MEDS: KETOROLAC TROMETHAMINE 15 MG INJ IVP ONE (16:50)
[2025-10-04 16:51] VITALS: BP 131/70; TEMP 97.7; O2SAT 98
== END 2025-10-04 16:54 | disposition home or self-care (01) ==
LOC: ER 15:48
DX: S20.212A Contusion of left front wall of thorax, initial encounter (principal); R07.89 Other chest pain; I11.9 Hypertensive heart disease without heart failure; E03.9 Hypothyroidism, unspecified; E78.5 Hyperlipidemia, unspecified; Z79.890 Hormone replacement therapy; Z79.899 Other long term (current) drug therapy; Z90.710 Acquired absence of both cervix and uterus; W18.39XA Other fall on same level, initial encounter; Y93.89 Activity, other specified; Y92.89 Other specified places as the place of occurrence of the external cause; Y99.9 Unspecified external cause status
CPT/HCPCS: 36415; 71045; 84484; 85025; A4606; A4663; J1885